=== PATIENT | female | born 1965 | race Hispanic/Latino ===

== ENCOUNTER 2017-12-19 10:24 | Outpatient (CLI) | payer BC | END 2017-12-19 10:25 | disposition home or self-care (01) | LOC: BICMAMMO 10:24 | PROVIDERS: ATTEND Family Medicine | DX: Z12.31 Encounter for screening mammogram for malignant neoplasm of breast (principal); Z80.3 Family history of malignant neoplasm of breast | CPT/HCPCS: 77063; 77067 ==

== ENCOUNTER 2019-01-01 10:16 | Outpatient (CLI) | payer BC ==
--- NOTE | 2019-01-01 11:34 | MMO ---
Bilateral MAMMO Bilat Screen [facility]. CLINICAL HISTORY: Patient is 53 years old and is seen for screening. The patient has the following family history of breast cancer: mother, 60'S. The patient has no personal history of cancer. VIEWS: The views performed were: bilateral craniocaudal with tomosynthesis; bilateral mediolateral oblique with tomosynthesis; and bilateral exaggerated craniocaudal. FILMS COMPARED: The present examination has been compared to prior imaging studies performed at [facility] on 12/05/2014, 12/07/2015, 12/09/2016 and 12/19/2017. MAMMOGRAM FINDINGS: There are scattered fibroglandular densities. There are benign appearing calcifications seen in both breasts. There are no suspicious masses, suspicious calcifications, or new areas of architectural distortion. IMPRESSION: THERE IS NO MAMMOGRAPHIC EVIDENCE OF MALIGNANCY. A ROUTINE FOLLOW-UP MAMMOGRAM IN 1 YEAR IS RECOMMENDED. THE RESULTS OF THIS EXAM WERE SENT TO THE PATIENT. ACR BI-RADS Category 2 - Benign finding MAMMOGRAPHY NOTE: 1. A negative mammogram report should not delay a biopsy if a dominant of clinically suspicious mass is present. 2. Approximately 10% to 15% of breast cancers are not detected by mammography. 3. Adenosis and dense breasts may obscure an underlying neoplasm.
== END 2019-01-01 10:17 | disposition home or self-care (01) ==
LOC: BICMAMMO 10:16
PROVIDERS: ATTEND Family Medicine
DX: Z12.31 Encounter for screening mammogram for malignant neoplasm of breast (principal); Z80.3 Family history of malignant neoplasm of breast
CPT/HCPCS: 77063; 77067

== ENCOUNTER 2019-01-29 07:46 | Outpatient (CLI) | payer BC ==
--- NOTE | 2019-01-29 10:11 | MRI ---
MRI Lower Ext Jt Lt WO Con HISTORY: Left knee pain. Loose body of left knee. COMPARISON: Plain film examination of 01/14/2019. FINDINGS: The anterior as well as posterior cruciate ligaments are intact. The medial as well as lateral menisci are normal in shape and appearance. 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 T here are also some articular cartilage changes of the lateral side of the trochlear groove. The medial and lateral patellar retinaculum and quadriceps and patellar tendons are unremarkable. There is marked articular cartilage loss of the medial femoral condyle with an approximately 6 x 12 m m area of grade IV chondromalacia change. Intra-articular bodies measuring 4 mm in size are seen posterior to the posterior cruciate ligament. There is a mild joint effusion. 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 Small intra-articular bodies noted.
== END 2019-01-29 07:47 | disposition home or self-care (01) ==
LOC: SCSMRI 07:46
PROVIDERS: ATTEND Orthopaedic Surgery
DX: M25.562 Pain in left knee (principal); M23.92 Unspecified internal derangement of left knee

== ENCOUNTER 2020-01-14 10:33 | Outpatient (CLI) | payer BC ==
--- NOTE | 2020-01-14 11:01 | MMO ---
Bilateral MAMMO Bilat Screen [facility]. CLINICAL HISTORY: Patient is 54 years old and is seen for screening. The patient has the following family history of breast cancer: mother, 60'S. The patient has no personal history of cancer. VIEWS: The views performed were: bilateral craniocaudal with tomosynthesis and bilateral mediolateral oblique with tomosynthesis. FILMS COMPARED: The present examination has been compared to prior imaging studies performed at [facility] on 12/07/2015, 12/09/2016, 12/19/2017 and 01/01/2019. This study has been interpreted with the assistance of computer-aided detection. MAMMOGRAM FINDINGS: There are scattered fibroglandular densities. Finding 1: There are benign appearing calcifications seen in both breasts. Finding 2: There is a stable intramammary lymph node seen in the right breast. There are no suspicious masses, suspicious calcifications, or new areas of architectural distortion. IMPRESSION: THERE IS NO MAMMOGRAPHIC EVIDENCE OF MALIGNANCY. A ROUTINE FOLLOW-UP MAMMOGRAM IN 1 YEAR IS RECOMMENDED. THE RESULTS OF THIS EXAM WERE SENT TO THE PATIENT. ACR BI-RADS Category 2 - Benign finding MAMMOGRAPHY NOTE: 1. A negative mammogram report should not delay a biopsy if a dominant of clinically suspicious mass is present. 2. Approximately 10% to 15% of breast cancers are not detected by mammography. 3. Adenosis and dense breasts may obscure an underlying neoplasm. Reported by: RUIZ FELIX MD Electonically Signed: [id number]
== END 2020-01-14 10:34 | disposition home or self-care (01) ==
LOC: BICMAMMO 10:33
PROVIDERS: ATTEND Family Medicine
DX: Z12.31 Encounter for screening mammogram for malignant neoplasm of breast (principal); Z80.3 Family history of malignant neoplasm of breast
CPT/HCPCS: 77063; 77067

== ENCOUNTER 2021-01-20 10:36 | Outpatient (CLI) | payer BC | END 2021-01-20 10:37 | disposition home or self-care (01) | LOC: BICMAMMO 10:36 | PROVIDERS: ATTEND Family Medicine | DX: Z12.31 Encounter for screening mammogram for malignant neoplasm of breast (principal); Z80.3 Family history of malignant neoplasm of breast | CPT/HCPCS: 77063; 77067 ==

== ENCOUNTER 2022-02-16 10:05 | Outpatient (CLI) | payer BC | END 2022-02-16 10:06 | disposition home or self-care (01) | LOC: BICMAMMO 10:05 | PROVIDERS: ATTEND Family Medicine | DX: Z12.31 Encounter for screening mammogram for malignant neoplasm of breast (principal); Z80.3 Family history of malignant neoplasm of breast | CPT/HCPCS: 77063; 77067 ==

== ENCOUNTER 2023-02-21 11:54 | Outpatient (CLI) | payer BC | END 2023-02-21 11:55 | disposition home or self-care (01) | LOC: BICMAMMO 11:54 | PROVIDERS: ATTEND Family Medicine | DX: Z12.31 Encounter for screening mammogram for malignant neoplasm of breast (principal) | CPT/HCPCS: 77063; 77067 ==

== ENCOUNTER 2025-03-04 10:43 | Outpatient (CLI) | payer BC | END 2025-03-04 10:44 | disposition home or self-care (01) | LOC: BICMAMMO 10:43 | PROVIDERS: ATTEND Family Medicine | DX: Z12.31 Encounter for screening mammogram for malignant neoplasm of breast (principal); Z80.3 Family history of malignant neoplasm of breast | CPT/HCPCS: 77063; 77067 ==